=== PATIENT | female | born 1975 | race Asian ===

== ENCOUNTER 2017-05-07 17:57 | Emergency (ER) | payer OTHER ==
[2017-05-07 18:00] VITALS: TEMP 36.7; Ht 167.6 cm
[2017-05-07] MEDS ORDERED: OXYCODONE/ACETAMINOPHEN 5-325 TAB PO ONE (18:15)
[2017-05-07 18:35] LABS: PREG INTERNAL NEGATIVE QC NEG CLEAR BACKGROUND; PREG INTERNAL POSITIVE QC POS CONTROL LINE
[2017-05-07 18:36] LABS: URINE BILIRUBIN NEG (NEG); URINE EPITHELIAL CELL AUTO >30 /lpf (0-5); URINE NITRITE NEG (NEG); URINE PH 7.5 (4.5-7.5); URINE SPECIFIC GRAVITY 1.018 (1.000-1.030); UROBILINOGEN NEG (NEG); ZZUR CULT IF INDIC CLEAN CATCH YES
[2017-05-07 18:46] LABS: MANUAL MICROSCOPIC REQUIRED? NO; REVIEW REQ? YES; SULFASALICYLIC ACID POS (NEG); URINE APPEARANCE TURBID (CLEAR); URINE COLOR RED
[2017-05-07 19:00] LABS: ALT/SGPT 23 U/L (12-78); BLOOD UREA NITROGEN 9 mg/dl (7-18); BUN/CREATININE RATIO 11.9 (10-20); CALCIUM 9.6 mg/dl (8.5-10.1); CARBON DIOXIDE 30 mmol/L (21-32); CHLORIDE 104 mmol/L (98-107); CREATININE 0.75 mg/dl (0.60-1.20); GLUCOSE 102 mg/dl (70-99); POTASSIUM 3.8 mmol/L (3.5-5.1); SODIUM 141 mmol/L (136-145)
[2017-05-07 19:03] LABS: ALKALINE PHOSPHATASE 91 U/L (45-117); AST/SGOT 15 U/L (15-37)
[2017-05-07 19:05] LABS: BASO % 0.2 %; BASO ABS # 0.03 K/uL (0-0.2); EOS % 1.3 %; IG% 0.2 %; LYMPH ABS # 2.29 K/uL (1.2-3.4); MEAN CELL VOLUME 63.6 fL (80-100); MEAN CORPUSCULAR HEMOGLOBIN 19.4 pg (25-34); MEAN CORPUSCULAR HGB CONC 30.5 g/dl (32-36); MONO % 6.6 %; NEUT % 72.7 %; PLATELET COUNT 307 K/uL (130-400); RED BLOOD COUNT 6.29 M/uL (4.2-5.4); WHITE BLOOD COUNT 12.04 K/uL (4.8-10.8)
[2017-05-07 19:30] LABS: ANISOCYTOSIS PRESENT; COMPLETE YES; HYPOCHROMIA PRESENT; MICROCYTOSIS PRESENT
--- NOTE | 2017-05-07 20:18 | DIAGNOSTIC IMAGING REPORT ---
ABDOMEN AND PELVIS CT WITHOUT CONTRAST CT DOSE: 1238.21 mGy.cm HISTORY: severe supra pubic pain stone? TECHNIQUE: Multiaxial CT images of the abdomen and pelvis were performed without the use of intravenous and oral contrast according to the standard department stone protocol. A dose lowering technique was utilized adhering to the principles of ALARA. COMPARISON STUDY: None. FINDINGS: The lung bases are clear. No pneumoperitoneum. Postoperative changes within the stomach. The unenhanced liver, spleen, gallbladder, pancreas, and adrenal glands are unremarkable. No retroperitoneal lymphadenopathy. Tiny fat-containing lesion within the lower pole the left kidney consistent with an angiomyolipoma. No renal or ureteral stones. No hydronephrosis. Mild bladder wall thickening with surrounding mild fat stranding. The uterus and ovaries are unremarkable. No bowel wall thickening or obstruction. IMPRESSION: 1. Mild bladder wall thickening with surrounding fat stranding. This likely represents a cystitis. Recommend correlation with urinalysis. 2. No renal stones or hydronephrosis. 3. No bowel wall thickening or obstruction. Electronically signed by: Surendra Beltrán M.D. 05/07/2017 8:17 PM Dictated Date/Time: 05/07/2017 8:11 PM
[2017-05-07] MEDS ORDERED: CIPROFLOXACIN 400MG / 200ML D5W IV STA (20:27)
[2017-05-07] MEDS ORDERED: PHENAZOPYRIDINE HCL 200 MG TAB PO STA (20:33)
[2017-05-07] MEDS ORDERED: ONDANSETRON INJ 2 MG/ML 2 ML VIAL IV PRN (20:45)
[2017-05-07] MEDS ORDERED: MoRPHine SULFATE 10 MG/ML CARP/VIAL IV PRN (20:45)
[2017-05-07] MEDS ORDERED: CIPR-255 PO (21:05)
[2017-05-07] MEDS ORDERED: PHEN-775 PO (21:05)
[2017-05-07] MEDS ORDERED: CIPROFLOXACIN 500 MG TAB PO STA (21:05)
[2017-05-07] MEDS ORDERED: PERCOCET HOME PACK PO ONE (21:15)
[2017-05-07] MEDS ORDERED: EMPTY 8 DRAM VIAL ONE (22:36)
[2017-05-07 23:03] VITALS: BP 123/68; PULSE 76; O2SAT 99
--- NOTE | 2017-05-08 00:16 | EMERGENCY ROOM VISIT NOTE ---
History Report prepared by Niki: So Miranda Under the Supervision of: Dr. Bebo Torres M.D. First contact with patient: 18:07 Chief Complaint: URINARY SYMPTOMS Stated Complaint: ABD PAIN,BURNING WHEN URINATING,CONSTANT URINE History of Present Illness The patient is a 41 year old female who presents to the Emergency Room with complaints of worsening urinary symptoms starting yesterday. The patient states that it started as abdominal pain that was intermittent and was only around when she urinated. She states that since then it has increased and become constant. She reports that the pain is a burning sensation that comes every time she feels like she has to urinate. The patient states that she came to the ED today because the pain became unbearable. She reports that she is having back pain currently. She states that the pain on her abdomen is on both sides and that the urine sample she gave today is the first time it has looked like "fruit punch." The patient stats that the pain is worse with breathing, driving over bumps, and when she uses the restroom. The patient denies a fever, chills, abnormal bowel movements, pain in her legs, currently having her period, being on any medications, and having a history of urinary issues. The patient currently rates her pain as a 10/10 in severity. Source of History: patient Onset: yesterday Position: other (global) Symptom Intensity: 10/10 Quality: burning Timing: worsening Modifying Factors (Worsening): breathing, urination, other (driving over bumps) Associated Symptoms: + abdominal pain, + back pain, No fevers, No chills Note: The patient complains of current hematuria. The patient denies abnormal bowel movements, pain in her legs, currently having her period, being on any medications, and having a history of urinary issues. Review of Systems All systems have been listed, reviewed, and are negative other than those previously mentioned. Please see Additional Medical History Sheet. Past Medical & Surgical Medical Problems: (1) No Known Active Medical Problems Family History Patient reports no known family medical history. Social History Smoking Status: Never Smoker Alcohol Use: none Marital Status: Housing Status: lives with family Occupation Status: unemployed Current/Historical Medications Scheduled Ciprofloxacin Hcl (Cipro), 1 TAB PO BID Phenazopyridine Hcl (Pyridium), 200 MG PO TID Allergies Coded Allergies: No Known Allergies (Unverified , 05/07/17) Physical Exam Vital Signs Date Time Temp Pulse Resp B/P (MAP) Pulse Ox O2 Delivery O2 Flow Rate FiO2 05/07/17 23:03 76 20 123/68 99 05/07/17 21:38 76 20 127/78 98 Room Air 05/07/17 20:53 76 20 127/80 98 Room Air 05/07/17 19:53 80 20 116/78 100 05/07/17 18:00 36.7 95 20 151/90 98 Room Air Physical Exam GENERAL: Patient awake, alert, oriented x 3. Patient follows commands. Patient does not appear toxic. Patient is adequately hydrated and well- nourished. SKIN: No erythema, pallor, cyanosis or rash HEENT: Normal head, pupils equal, reactive to light and accommodation. LUNGS: Clear to auscultation. No wheezes, no rales, no rhonchi. HEART: No murmurs. No gallops. No rubs ABDOMEN: Moderate to severe tenderness over the suprapubic area. Some tenderness over the left CVA area. No masses, no rebound, no guarding, no hepatomegaly or splenomegaly. EXTREMITIES: No signs of trauma. No pedal or pretibial edema. No calf or thigh tenderness. NEUROLOGIC: Cranial nerves II-XII within normal limits. No gross motor sensory function deficits. Medical Decision & Procedures ER Provider Diagnostic Interpretation: Radiology results as stated below per my review and radiologist interpretation: ABDOMEN AND PELVIS CT WITHOUT CONTRAST CT DOSE: 1238.21 mGy.cm HISTORY: severe supra pubic pain stone? TECHNIQUE: Multiaxial CT images of the abdomen and pelvis were performed without the use of intravenous and oral contrast according to the standard department stone protocol. A dose lowering technique was utilized adhering to the principles of ALARA. COMPARISON STUDY: None. FINDINGS: The lung bases are clear. No pneumoperitoneum. Postoperative changes within the stomach. The unenhanced liver, spleen, gallbladder, pancreas, and adrenal glands are unremarkable. No retroperitoneal lymphadenopathy. Tiny fat-containing lesion within the lower pole the left kidney consistent with an angiomyolipoma. No renal or ureteral stones. No hydronephrosis. Mild bladder wall thickening with surrounding mild fat stranding. The uterus and ovaries are unremarkable. No bowel wall thickening or obstruction. IMPRESSION: 1. Mild bladder wall thickening with surrounding fat stranding. This likely represents a cystitis. Recommend correlation with urinalysis. 2. No renal stones or hydronephrosis. 3. No bowel wall thickening or obstruction. Electronically signed by: Surendra Beltrán M.D. 05/07/2017 8:17 PM Dictated Date/Time: 05/07/2017 8:11 PM Laboratory Results 05/07/17 18:30 Red Blood Count 6.29, Mean Corpuscular Volume 63.6, Mean Corpuscular Hemoglobin 19.4, Mean Corpuscular Hemoglobin Concent 30.5, Neutrophils (%) (Auto) 72.7, Lymphocytes (%) (Auto) 19.0, Monocytes (%) (Auto) 6.6, Eosinophils (%) (Auto) 1.3, Basophils (%) (Auto) 0.2, Neutrophils # (Auto) 8.74, Lymphocytes # (Auto) 2.29, Monocytes # (Auto) 0.80, Eosinophils # (Auto) 0.16, Basophils # (Auto) 0.03 05/07/17 18:30 Test 05/07/17 00:00 05/07/17 18:30 Urine Color RED Urine Appearance TURBID (CLEAR) Urine pH 7.5 (4.5-7.5) Urine Specific [place] 1.018 (1.000-1.030) Urine Protein 1+ (NEG) Urine Glucose (UA) NEG (NEG) Urine Ketones NEG (NEG) Urine Occult Blood 2+ (NEG) Urine Nitrite NEG (NEG) Urine Bilirubin NEG (NEG) Urine Urobilinogen NEG (NEG) Urine Leukocyte Esterase SMALL (NEG) Urine WBC (Auto) >30 /hpf (0-5) Urine RBC (Auto) >30 /hpf (0-4) Urine Hyaline Casts (Auto) 1-5 /lpf (0-5) Urine Epithelial Cells (Auto) >30 /lpf (0-5) Urine Bacteria (Auto) 1+ (NEG) Urine Pathogenic Casts /lpf (0) Urine Yeast (Auto) (NONE PRSENT) Urine Test NEG (NEG) White Blood Count 12.04 K/uL (4.8-10.8) Red Blood Count 6.29 M/uL (4.2-5.4) Hemoglobin 12.2 g/dL (12.0-16.0) Hematocrit 40.0 % (37-47) Mean Corpuscular Volume 63.6 fL (80-100) Mean Corpuscular Hemoglobin 19.4 pg (25-34) Mean Corpuscular Hemoglobin Concent 30.5 g/dl (32-36) Platelet Count 307 K/uL (130-400) Neutrophils (%) (Auto) 72.7 % Lymphocytes (%) (Auto) 19.0 % Monocytes (%) (Auto) 6.6 % Eosinophils (%) (Auto) 1.3 % Basophils (%) (Auto) 0.2 % Neutrophils # (Auto) 8.74 K/uL (1.4-6.5) Lymphocytes # (Auto) 2.29 K/uL (1.2-3.4) Monocytes # (Auto) 0.80 K/uL (0.11-0.59) Eosinophils # (Auto) 0.16 K/uL (0-0.5) Basophils # (Auto) 0.03 K/uL (0-0.2) RDW Standard Deviation 37.6 fL (36.4-46.3) RDW Coefficient of Variation 16.7 % (11.5-14.5) Immature Granulocyte % (Auto) 0.2 % Immature Granulocyte # (Auto) 0.02 K/uL (0.00-0.02) Hypochromasia PRESENT Anisocytosis PRESENT Microcytosis PRESENT Anion Gap 7.0 mmol/L (3-11) Estimated GFR () 113.9 Estimated GFR (Non- 98.3 BUN/Creatinine Ratio 11.9 (10-20) Calcium Level 9.6 mg/dl (8.5-10.1) Total Bilirubin 0.3 mg/dl (0.2-1) Aspartate Amino Transf (AST/SGOT) 15 U/L (15-37) Alanine Aminotransferase (ALT/SGPT) 23 U/L (12-78) Alkaline Phosphatase 91 U/L (45-117) Total Protein 8.0 gm/dl (6.4-8.2) Albumin 4.0 gm/dl (3.4-5.0) Globulin 4.0 gm/dl (2.5-4.0) Albumin/Globulin Ratio 1.0 (0.9-2) Laboratory results as stated above per my review. Medications Administered Medications (Trade) Dose Ordered Sig/Hali Route Start Time Stop Time Status Last Admin Dose Admin Oxycodone/ Acetaminophen (Percocet 5-325mg Tab) 1 tab NOW ONCE PO 05/07/17 18:15 05/07/17 18:17 DC 05/07/17 18:23 1 TAB Ciprofloxacin/ Dextrose (Cipro / D5W) 400 mg NOW STAT IV 05/07/17 20:27 05/07/17 20:30 DC 05/07/17 20:51 400 MG Morphine Sulfate (MoRPHine SULFATE INJ) 6 mg Q1H PRN IV 05/07/17 20:45 05/07/17 23:18 DC 05/07/17 20:51 6 MG Ondansetron HCl (Zofran Inj) 4 mg Q1HWA PRN IV 05/07/17 20:45 05/07/17 23:18 DC 05/07/17 20:50 4 MG Phenazopyridine HCl (Pyridium Tab) 200 mg NOW STAT PO 05/07/17 20:33 05/07/17 20:35 DC 05/07/17 20:51 200 MG Oxycodone/ Acetaminophen (Percocet 5/ 325MG Home Pack) 1 homepack UD ONCE PO 05/07/17 21:15 05/07/17 21:16 DC 05/07/17 22:44 1 HOMEPACK Ciprofloxacin (Cipro Tab) 500 mg NOW STAT PO 05/07/17 21:05 05/07/17 21:07 DC 05/07/17 22:44 500 MG ED Course 180: Past medical records reviewed. The patient was evaluated in room A10. A complete history and physical examination was performed. 1814: Ordered Percocet 5-325mg Tab 1 tab PO. 2026: Ordered Cipro / D5W 400 mg IV. 2032: Ordered Pyridium Tab 200 mg PO. 2041: I reevaluated the patient and she still complains of back pain. I will start her on more pain medication and antibiotics. 2044: Ordered Zofran Inj 4 mg PRN IV nausea, Morphine Sulfate 6 mg PRN IV pain. 2104: Ordered Cipro Tab 500 mg PO. 2114: Ordered Percocet 5/325MG Home Pack 1 homepack PO. 2157: I reevaluated the patient and she is feeling much better. She is still having an antibiotic drip. 2236: Upon reevaluation, the patient appeared to have improvement of her symptoms. I discussed today's findings with the patient. She verbalized agreement of the treatment plan. The patient was discharged home. Medical Decision Differential diagnoses include UTI, pyelonephritis, kidney stone, bowel obstruction. 41-year-old female complains of moderate to severe lower abdominal and back pain. Patient also has dysuria and frequency. Multiple labs, urinalysis and CT were obtained. No stone was found. She does have a urinalysis consistent with infection. The patient was given IV Cipro. She was given pain medication. She was given Pyridium. Patient appeared to be improving while here in the ED. I believe that she has early pyelonephritis. She will continue taking Cipro at home along with Pyridium. Impression Primary Impression: Pyelonephritis Scribe Attestation The scribe's documentation has been prepared under my direction and personally reviewed by me in its entirety. I confirm that the note above accurately reflects all work, treatment, procedures, and medical decision making performed by me. Departure Information Dispostion Home / Self-Care Prescriptions Ciprofloxacin Hcl (CIPRO) 500 Mg Tab 1 TAB PO BID for 10 Days, #20 TAB Prov: Bebo Torres M.D. 05/07/17 Phenazopyridine Hcl (PYRIDIUM) 200 Mg Tab 200 MG PO TID, #6 TAB Prov: Bebo Torres M.D. 05/07/17 Referrals No Doctor, Assigned (PCP) Forms HOME CARE DOCUMENTATION FORM, IMPORTANT VISIT INFORMATION Patient Instructions My [facility] Additional Instructions 500 mg of ciprofloxacin twice a day for 10 days. 1 Pyridium 3 times a day for the next 2 days. 600 mg ibuprofen every 6 hours as needed for moderate pain. 1-2 Percocet every 4 hours as needed for severe pain. Drink at least 3-or 4 quarts of liquid per day for the next 3 days.
== END 2017-05-07 23:04 | disposition home or self-care (01) ==
LOC: C.EDB 17:58 → C.EDA 23:04
DX: N12 Tubulo-interstitial nephritis, not specified as acute or chronic (principal)